=== PATIENT | female | born 1990 | race African-American/Black ===

== ENCOUNTER 2016-10-09 13:00 | Emergency (ER) | payer OTHER ==
[~2016-10-09] VITALS: Ht 170.2 cm; Wt 54.0 kg
[~2016-10-09 13:00] MED LIST: ADVAIR 100-501 EACH INH; ADVAIRDISKUS; BACTRIM DS TAB1 EACH PO; FLAGYL500 MG PO; IBUPROFEN 600600 M1 PO; NORCO 5-325 TA1 EACH PO
[2016-10-09 13:24] LABS: URINE BILIRUBIN NEGATIVE (Negative); URINE BLOOD NEGATIVE (Negative); URINE COLOR YELLOW; URINE GLUCOSE-RANDOM* NEGATIVE (Negative); URINE KETONES 1+ (Negative); URINE NITRITE NEGATIVE (Negative); URINE PROTEIN (DIPSTICK) TRACE (Negative); URINE SPECIFIC GRAVITY 1.025 (1.003-1.035); URINE UROBILINOGEN 0.2 E.U./dl (0.2-1.0)
[2016-10-09 14:06] LABS: SQUAMOUS >10 Many /LPF (0-3)
[2016-10-09 14:07] LABS: URINE RBC 0-2 Rare /HPF (0-2); URINE WBC 6-15 Few /HPF (0-5)
[2016-10-09 14:08] LABS: AMORPHOUS URATES Few /LPF (None Seen); BACTERIA None Seen /HPF (None Seen); CASTS None Seen /LPF (None Seen)
[2016-10-09 14:38] LABS: HEMATOCRIT 33.4 % (37.0-47.0); HEMOGLOBIN 10.6 gm/dL (12.0-15.0); MCH 21.8 pg (26.0-34.0); MCHC 31.8 g/dL (28.0-37.0); MCV 68.4 fL (80.0-100.0); RBC 4.88 mil/uL (4.20-5.00); RDW 20.8 % (10.5-14.5); WBC 7.8 thou/uL (4.0-11.0)
[2016-10-09 15:10] LABS: CALCIUM 9.1 mg/dL (8.5-10.1); CREATININE 0.6 mg/dL (0.6-1.0); POTASSIUM 3.8 mmol/L (3.5-5.1)
[2016-10-09] MEDS ORDERED: FLAGYL500 MG PO (16:12)
[2016-10-09 17:01] VITALS: BP 126/76
== END 2016-10-09 16:30 | disposition home or self-care (01) ==
LOC: ER 13:00
PROVIDERS: Physician Assistant
DX: O20.0 Threatened abortion (principal); O23.591 Infection of other part of genital tract in pregnancy, first trimester; Z3A.01 Less than 8 weeks gestation of pregnancy; J45.909 Unspecified asthma, uncomplicated; F12.10 Cannabis abuse, uncomplicated